=== PATIENT | male | born 1995 | race Caucasian/White ===

== ENCOUNTER 2017-12-17 18:51 | Emergency (ER) | payer MEDICAID ==
[~2017-12-17] VITALS: Ht 172.7 cm; Wt 71.0 kg
[2017-12-17] MEDS ORDERED: LIDOCAINE HCL 1% 10 ML VIAL INJ ONE (19:45)
[2017-12-17] MEDS ORDERED: PENICILLIN V POTASSIUM 500 MG TABLET PO ONE (19:45)
[2017-12-17 20:45] VITALS: BP 125/78
== END 2017-12-17 21:06 | disposition home or self-care (01) ==
LOC: EMS 18:52
DX: K08.89 Other specified disorders of teeth and supporting structures (principal); J45.909 Unspecified asthma, uncomplicated; F17.210 Nicotine dependence, cigarettes, uncomplicated
CPT/HCPCS: 64400; 99284; J3490